=== PATIENT | male | born 1960 | race Caucasian/White ===

== ENCOUNTER 2024-01-28 15:30 | Emergency (ER) | payer BC, SELFPAY ==
[2024-01-28 15:46] VITALS: BP 189/111; PULSE 96; RESP 13; TEMP 37.1; O2SAT 95
[2024-01-28 15:47] VITALS: BMI 35.9
[2024-01-28 15:50] VITALS: PULSE 96
--- NOTE | 2024-01-28 16:00 | XR_ITS ---
Examination: CT brain head without contrast. 2-D sagittal coronal reconstructions Date and time of exam:January 28, 2024 1606 hrs. Comparison July 11, 2018 Indications: Onset dizziness today, history hypertension CTDI: vol (mGy):55 DLP: (mGycm):1213 Technique: Multiple CT axial sections of the brain have been obtained, 5 mm slice thickness. Contrast has not been administered. 2-D sagittal, coronal reconstructions have been obtained Low dose protocols were performed. One or more of the following dose reduction techniques were used; automated exposure control, adjustment of the mA and/or KV according to patient size, use of iterative reconstruction technique. Findings: No significant ventricular enlargement. 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 No mass effect or midline shift Basal cisterns are not remarkable. Fourth ventricle is midline. Cranial vault intact. Impression: Negative for acute hemorrhage, mass effect or midline shift Clinical correlation advised and follow-up accordingly
--- NOTE | 2024-01-28 16:00 | XR_ITS ---
Examination: AP chest single view Technique: AP portable upright chest single view Exam date and time: January 27, 2014 1618 hrs. Comparison January 01, 2022 Indications: Hypertension dizziness today Findings: Normal heart size No pneumonia or pulmonary edema Moderate osteopenia Impression: No active disease
--- NOTE | 2024-01-28 16:00 | EKG_ITS ---
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
--- NOTE | 2024-01-28 16:01 | EDNOTE_ITS ---
ED Dizzyness RME/HPI General Chief Complaint: Dizziness Stated Complaint: DIZZINESS Time Seen by Provider: 01/28/24 15:53 Arrival date/time: 01/28/24 15:30 RME / HPI RME / HPI Narrative: 63-year-old male patient came in for evaluation regarding sudden onset of dizziness. Onset of symptoms about 3 hours prior to ER visit as sudden onset of dizziness, described as massive dizziness, off balance when ambulating, severity moderate. Patient denies any blurry vision denies any headache denies any numbness or paresthesia denies any upper or lower extremity weakness. Patient denies any fever denies any head trauma or fall denies any ear ache. Patient told me that he is diabetic but is not taking his diabetes medication for a while now. In the triage patient was noted to be hypertensive, blood pressure of 189/111. Related Data Home Medications ?Medication ?Instructions ?Recorded ?Confirmed azilsartan medoxomil 40 1 tab PO QDAY 10/07/18 09/04/20 mg-chlorthalidone 25 mg tablet (Edarbyclor) fenofibrate 160 mg tablet 160 mg PO DAILY 09/04/20 09/04/20 Previous Rx's ?Medication ?Instructions ?Recorded meclizine 50 mg tablet 50 mg PO BID PRN dizziness #20 tabs 01/28/24 Allergies Allergy/AdvReac Type Severity Reaction Status Date / Time No Known Allergies Allergy Verified 01/28/24 15:31 Review of Systems Review of Systems Narrative Review of Systems: Review of system reviewed and within normal limits except mentioned in HPI ED Exam Narrative Physical exam: VITAL SIGNS: Reviewed. GENERAL APPEARANCE: Alert and interactive, follows commands, no acute distress, GCS of 15 HEAD AND FACE: Non-traumatic. ENT: PERRL, pink conjunctivitis, eyelid no trauma, Mucous membrane moist. No nystagmus noted NECK: Supple, nontender, no nuchal rigidity. CHEST: No tenderness, no crepitus, no paradoxical movement, no retractions. LUNGS: Clear, well ventilated, symmetric, no rales, no wheezing, no ronchi, no stridor, good breath sounds bilaterally. HEART: Regular rate, regular rhythm, no murmur, no gallops. ABDOMEN: Soft, positive bowel sounds, nondistended, no guarding, nontender, no rebound, no masses, RECTAL: Deferred. GENITAL: Deferred. NEUROLOGICAL: Gross motor function intact sensory function intact, Appropriate for age. MUSCULOSKELETAL: low back nontender, full range of motion. EXTREMITIES: Nontender, full range of motion. SKIN: Color pink, dry, no rash, no lacerations, no abrasions, no contusions. LYMPHATICS: Deferred. Course Quality Measures none Orders Category Date Time Status EKG (ED ONLY) *Do not use* NOW Care 01/28/24 16:[address] head/brain wo con Stat Exams 01/28/24 16:00 Completed EKG (ED Only) Stat Exams 01/28/24 16:00 Draft XR chest 1V Stat Exams 01/28/24 16:00 Completed B-Type Natriuretic Peptide Stat Lab 01/28/24 15:49 Completed CBC Stat Lab 01/28/24 15:49 Completed Comprehensive Metabolic Panel Stat Lab 01/28/24 15:49 Completed Partial Thromboplastin Time Stat Lab 01/28/24 15:49 Completed Prothrombin Time with INR Stat Lab 01/28/24 15:49 Completed Troponin I Stat Lab 01/28/24 15:49 Completed Urinalysis, C/S if Indicated Stat Lab 01/28/24 17:03 Completed Labetalol IV [Trandate IV] Med 01/28/24 16:00 Discontinued 20 mg IVP X1 ONE Meclizine HCl [Antivert] Med 01/28/24 17:37 Discontinued 50 mg PO X1 ONE Vital Signs Vital signs: Vital Signs Temperature 98.7 F 01/28/24 15:46 Pulse Rate 96 01/28/24 15:46 Respiratory Rate 13 01/28/24 15:46 Blood Pressure 189/111 H 01/28/24 15:46 Pulse Oximetry (%) 95 01/28/24 15:46 Oxygen Delivery Method Room Air 01/28/24 15:46 Dizziness MDM Narrative MDM Narrative:: 63-year-old male patient came in for evaluation regarding sudden onset of dizziness. Onset of symptoms about 3 hours prior to ER visit as sudden onset of dizziness, described as massive dizziness, off balance when ambulating, severity moderate. Patient denies any blurry vision denies any headache denies any numbness or paresthesia denies any upper or lower extremity weakness. Patient denies any fever denies any head trauma or fall denies any ear ache. Patient told me that he is diabetic but is not taking his diabetes medication fo r a while now. In the triage patient was noted to be hypertensive, blood pressure of 189/111. Patient's workup all came back normal including CT scan of the head which is also normal. Cardiac workup also came back normal. Patient was given labetalol, meclizine. Prior to discharge patient blood pressure was noted to be 136/65 and patient told me that his dizziness is totally gone. Patient is ambulatory with no recurrence of dizziness. Patient data External records reviewed:: None Clinical information provided by:: patient Social determinants that could affect healthcare access:: none Patient has the following chronic illnesses:: I was highly concerned with the patient's initial history/complaints and presentation, but after multiple re examinations, treatments pt showed reassuring clinical improvement. Also, an extensive laboratory work up and diagnostic imaging do not show any gross evidence of acute end organ damage related to a Hypertensive emergency.CBC, CMP and U/A unremarkable. therefore; most likely is a HTN-uncontrolled and possibly related to improper dieting and/or requires further anti hypertensive medication reconciliation and management as an outpatient with PMD. Diabetes mellitus How is presenting disease/condition affected by chronic disease/condition?: exacerbated by Evaluation data The following diagnostics were reviewed and interpreted by me:: lab results, radiology exam(s) and EKG tracing(s) Lab and/or radiology exams considered but not ordered:: none Interpretation Summary: EKG showed sinus rhythm, ventricular rate of 88 bpm, per interval 166 MS, no ST segment elevation or depression noted. CT scan of the head came back unremar kable. Laboratory workup all came back normal also. Except for a blood glucose of 273 with no sign of DKA. Medications / Prescriptions Medications or Prescriptions considered but not ordered:: None Medication administrations:: Medication Administration History Discontinued Medications Labetalol HCl (Labetalol Inj 5 Mg/Ml Vial 20 Ml) 20 mg IVP X1 ONE Stop: 01/28/24 16:01 Last Admin: 01/28/24 16:22 Dose: 20 mg Documented By: DO Meclizine HCl (Meclizine Hcl 25 Mg Tablet) 50 mg PO X1 ONE Stop: 01/28/24 17:38 Last Admin: 01/28/24 18:07 Dose: 50 mg Documented By: DO Labetalol and meclizine Consultations Consultation(s) initiated? (list below): No Diagnosis Dizziness Differential Diagnosis: benign paroxysmal positional vertigo, orthostatic hypotension, cerebrovascular accident and other ( Dizziness) Most likely diagnosis given after review of the tests above:: Dizziness Admission Indicated Admission indicated?: not indicated Explain why admission is indicated or not indicated:: Stable Admission Request Was there a request for admission?: No Disposition Plan Disposition Plan: Discharge Discharge Attestation Discharge Attestation: The patient was given an opportunity to ask questions and understood the discharge instructions. Discharge instructions specifically effects, indications for sooner follow up or return to the emergency department, and the expected course of current diagnosis. Patient condition: Stable Discharge Plan Plan Disposition Comment: stable Prescriptions/Referrals Prescriptions/Med Rec: New meclizine 50 mg tablet 50 mg PO BID PRN (Reason: dizziness) Qty: 20 0RF No Action Edarbyclor 40-25 mg tablet 1 tab PO QDAY fenofibrate 160 mg tablet 160 mg PO DAILY Problem List Clinical Impression: Dizziness Patient/Caregiver Discharge Instructions Education Materials: ED Dizziness, Uncertain Cause Additional Instructions: Thank you for the opportunity for serving you today. You are stable for discharged . You are advised to: Follow-up with your PCP in 1 to 2 days Return to ED for worsening of symptoms Increase oral fluids Take medication as prescribed Print Language: Chadian Stand Alone Forms: Emily Award Info., Patient Portal Info Letter
[2024-01-28 16:17] LABS: Basophils # (Auto) 0.1 Thou/mm3 (0.0-0.2); Basophils % (Auto) 1 % (0-2.5); Eosinophils # (Auto) 0.1 Thou/mm3 (0.0-0.5); Eosinophils % (Auto) 1 % (0-10); Hematocrit 45.7 % (41.0-53.0); Hemoglobin 16.1 g/dL (13.5-16.0); Immature Granulocytes % (Auto) 1 % (0-0); Immature Granulocytes Auto 0.06 Thou/mm3 (0.00-0.00); Lymphocytes % (Auto) 33 % (10-50); Mean Corpuscular HGB Conc 35.2 g/dl (31.0-37.0); Mean Corpuscular Hemoglobin 31.6 pg (25.0-35.0); Mean Corpuscular Volume 90 fL (80-100); Monocytes # (Auto) 0.6 Thou/mm3 (0.0-0.8); Monocytes % (Auto) 6 % (0-12); Neutrophils # (Auto) 5.4 Thou/mm3 (1.8-7.7); Neutrophils % (Auto) 59 % (37-80); Nucleated Red Blood Cell % 0 /100 WBC (0); Platelet Count 260 Thou/mm3 (140-440); RDW Standard Deviation 40.2 fL (35.1-43.9); White Blood Count 9.3 Thou/mm3 (3.8-10.6)
[2024-01-28 16:22] VITALS: BP 169/101; PULSE 89
[2024-01-28] MEDS: LABETALOL INJ 5 MG/ML VIAL 20 ML 20 MG IVP (16:22)
[2024-01-28 16:35] LABS: Partial Thromboplastin Time 25.6 Seconds (22.0-36.0); Prothrombin Time 10.9 Seconds (9.0-12.2)
[2024-01-28 16:38] LABS: Alanine Aminotransferase 119 U/L (10-49); Albumin, Serum 5.1 gm/dL (3.4-4.8); Albumin/Globulin Ratio 2.1 (1.2-2.2); Alkaline Phosphatase 116 U/L (46-116); Anion Gap 7 (7-16); Aspartate Amino Transferase 72 U/L (0-34); B-Type Natriuretic Peptide < 20 pg/mL (0-100); BUN/Creatinine Ratio 10 Ratio (12-20); Bilirubin,Total 0.5 mg/dL (0.3-1.2); Blood Urea Nitrogen 11 mg/dL (9-23); Calcium 9.7 mg/dL (8.3-10.6); Calcium (Corrected) 9.7 mg/dL (8.5-10.1); Carbon Dioxide 25.4 mMol/L (20.0-31.0); Chloride 101 mMol/L (98-107); Creatinine (Component) 1.1 mg/dL (0.6-1.3); Estimated Creatinine Clearance 88.9 mL/min (>60); Globulin 2.4 gm/dL (2.3-3.5); Glucose 273 mg/dL (74-106); Osmolality,Calculated 275 (275-295); Potassium 3.9 mMol/L (3.4-5.1); Sodium 133 mMol/L (136-145); Total Protein 7.5 gm/dL (5.7-8.2); Troponin I < 0.020 ng/mL (0.0-0.045); eGFR > 60 See Note
[2024-01-28 17:11] LABS: Collection Type, Urine Clean Catch; Squamous Epithelial Cell,Urine 0 /hpf (0-5)
[2024-01-28 17:20] LABS: Bilirubin,Urine Negative (Negative); Blood,Urine Negative (Negative); Clarity,Urine Clear (Clear/Hazy); Color,Urine Lt-Yellow (Lt Yel-Yel); Culture Indicated,Urine Not Indicated; Glucose, Urine 4+ (Negative); Ketones,Urine Negative (Negative); Leukocyte Esterase,Urine Negative (Negative); Nitrite,Urine Negative (Negative); PH,Urine 6.5 (5.0-7.0); Protein,Urine 1+ (Neg - Trace); RBC,Urine 1 /hpf (0-3); Specific Gravity,Urine 1.024 (1.001-1.035); Urobilinogen,Urine Negative mg/dL (0.0-1.0); WBC,Urine < 1 /hpf (0-5)
[2024-01-28] MEDS: MECLIZINE HCL 25 MG TABLET 50 MG PO (18:07)
[2024-01-28 18:09] VITALS: BP 136/86; PULSE 74; RESP 18; TEMP 36.7; O2SAT 96
--- NOTE | 2024-01-28 18:13 | PC.NURSE ---
pt resting comfortable at this time. denies dizziness. v/s updated. will continue to monitor
== END 2024-01-28 18:45 | disposition home or self-care (01) ==
PROVIDERS: Nurse Practitioner Family; Emergency Provider Emergency Medicine; PCP Internal Medicine
DX: R42 Dizziness and giddiness (principal); I45.10 Unspecified right bundle-branch block; I10 Essential (primary) hypertension
CPT/HCPCS: 36415; 70450; 71045; 80053; 81001; 83880; 84484; 85025; 85610; 85730; 93005; 96374; 99284; J3490; A9270; J1920

== ENCOUNTER → 2024-05-22 | Outpatient (CLI) | payer BC, SELFPAY ==
[2024-05-22 14:37] LABS: Basophils # (Auto) 0.1 Thou/mm3 (0.0-0.2); Basophils % (Auto) 1 % (0-2.5); Eosinophils # (Auto) 0.1 Thou/mm3 (0.0-0.5); Eosinophils % (Auto) 1 % (0-10); Hematocrit 45.7 % (41.0-53.0); Immature Granulocytes % (Auto) 1 % (0-0); Immature Granulocytes Auto 0.05 Thou/mm3 (0.00-0.00); Lymphocytes # (Auto) 3.7 Thou/mm3 (1.0-4.8); Lymphocytes % (Auto) 39 % (10-50); Mean Corpuscular Hemoglobin 31.8 pg (25.0-35.0); Mean Corpuscular Volume 91 fL (80-100); Monocytes # (Auto) 0.6 Thou/mm3 (0.0-0.8); Monocytes % (Auto) 6 % (0-12); Neutrophils # (Auto) 5.2 Thou/mm3 (1.8-7.7); Neutrophils % (Auto) 54 % (37-80); Nucleated Red Blood Cell % 0 /100 WBC (0); Platelet Count 240 Thou/mm3 (140-440); RDW Standard Deviation 39.8 fL (35.1-43.9); Red Blood Count 5.03 Miln/mm3 (4.50-5.90); White Blood Count 9.6 Thou/mm3 (3.8-10.6)
[2024-05-22 14:44] LABS: Prostate Specific Antigen 1.53 ng/mL (0-4.00)
[2024-05-22 15:03] LABS: Alanine Aminotransferase 139 U/L (10-49); Albumin, Serum 4.4 gm/dL (3.4-4.8); Alkaline Phosphatase 65 U/L (46-116); Anion Gap 7 (7-16); Aspartate Amino Transferase 78 U/L (0-34); BUN/Creatinine Ratio 16 Ratio (12-20); Bilirubin,Total 0.8 mg/dL (0.3-1.2); Blood Urea Nitrogen 18 mg/dL (9-23); Calcium 9.2 mg/dL (8.3-10.6); Calcium (Corrected) 9.2 mg/dL (8.5-10.1); Cardiac Risk Estimate 6.4 RATIO (4.0-6.7); Chloride 106 mMol/L (98-107); Cholesterol 223 mg/dL (132-200); Creatinine (Component) 1.1 mg/dL (0.6-1.3); Free T4 (Free Thyroxine) 1.06 ng/dL (0.89-1.76); Globulin 2.2 gm/dL (2.3-3.5); Glucose 211 mg/dL (74-106); HDL Cholesterol 35 mg/dL (40-60); LDL Cholesterol,Calculated 123 mg/dL (0-130); Osmolality,Calculated 283 (275-295); Potassium 4.1 mMol/L (3.4-5.1); Sodium 138 mMol/L (136-145); Thyroid Stimulating Hormone 4.56 uIU/mL (0.55-4.78); Total Protein 6.6 gm/dL (5.7-8.2); Triglycerides 327 mg/dL (30-150); eGFR > 60 See Note
== END | disposition home or self-care (01) ==
LOC: COPL 13:48
PROVIDERS: PCP Internal Medicine; Referring Provider Internal Medicine; Visit Provider Internal Medicine
DX: Z00.00 Encounter for general adult medical examination without abnormal findings (principal); E55.9 Vitamin D deficiency, unspecified; N40.1 Benign prostatic hyperplasia with lower urinary tract symptoms
CPT/HCPCS: 36415; 80053; 80061; 82306; 84153; 84439; 84443; 85025

== ENCOUNTER 2024-12-25 14:40 | Emergency (ER) | payer BC, SELFPAY ==
[2024-12-25 14:41] VITALS: BMI 36.2
[2024-12-25 14:50] VITALS: BP 154/99; BP 184/100; PULSE 110; RESP 20; TEMP 36.7; O2SAT 95
--- NOTE | 2024-12-25 14:57 | EKG_ITS ---
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1960 Requested By: Curtis Gamble Order Number: [id number] Reading MD: Curtis Gamble Measurements Intervals [place] Rate: 100 P: 56 AL: 165 QRS: -59 QRSD: 106 T: 30 QT: 353 QTc: 456 Interpretive Statements SINUS TACHYCARDIA LOW QRS VOLTAGE IN PRECORDIAL LEADS [QRS DEFLECTION < 1.0 mV IN CHEST LEADS] S1-S2-S3 PATTERN, CONSISTENT WITH PULMONARY DISEASE, RVH, OR NORMAL VARIANT PATTERN CONSISTENT WITH PULMONARY DISEASE INCOMPLETE RIGHT BUNDLE BRANCH BLOCK [90+ ms QRS DURATION, TERMINAL R IN V1/V2, 40+ ms S IN I/aVL/V4/V5/V6] LEFT ANTERIOR FASCICULAR BLOCK [QRS AXIS <= -45, QR IN I, RS IN II] Compared to ECG 01/28/2024 16:31:20 Low QRS voltage now present Right ventricular hypertrophy now present Left anterior fascicular block now present Sinus rhythm no longer present Left-axis deviation no longer present T-wave abnormality no longer present /store/S0/[id number]/[id number].pdf
--- NOTE | 2024-12-25 14:57 | EDRME_ITS ---
Rapid Medical Screening Exam [facility] Arrival date/time: 12/25/24 14:40 64-year-old male with no known medical history presents to the emergency room with a chief complaint of right sided visual deficits. Patient states last Wednesday he began to have dizziness, loss of balance, and right-sided visual blurring vision. Patient denies any unilateral numbness or deficits I have greeted and performed a focused initial assessment of this patient. A comprehensive ED assessment and evaluation of the patient, analysis of all test results, and completion of the medical decision making process will be conducted by additional ED providers. Chief Complaint: Eye Problems Time Seen by Provider: 12/25/24 14:42 Vital signs: Vital Signs Temperature 98.0 F 12/25/24 14:50 Pulse Rate 110 H 12/25/24 14:50 Respiratory Rate 20 12/25/24 14:50 Blood Pressure 184/100 H 12/25/24 14:50 Pulse Oximetry (%) 95 12/25/24 14:50 Oxygen Delivery Method Room Air 12/25/24 14:50 Vital signs reviewed by provider: Yes Exam: Patient is a GCS of 15 he is alert and oriented x 3 pupils are PERRLA EOMs are intact Patient has a strong and regular rhythm clear bilateral lung sounds Clinical Impression: Villa's palsy/CVA/electrolyte imbalance/
[2024-12-25 15:42] LABS: Collection Type, Urine Clean Catch
[2024-12-25 15:47] LABS: Basophils # (Auto) 0.1 Thou/mm3 (0.0-0.2); Basophils % (Auto) 1 % (0-2.5); Eosinophils # (Auto) 0.0 Thou/mm3 (0.0-0.5); Eosinophils % (Auto) 0 % (0-10); Hematocrit 49.9 % (41.0-53.0); Hemoglobin 17.2 g/dL (13.5-16.0); Immature Granulocytes Auto 0.09 Thou/mm3 (0.00-0.00); Lymphocytes # (Auto) 2.6 Thou/mm3 (1.0-4.8); Lymphocytes % (Auto) 28 % (10-50); Mean Corpuscular HGB Conc 34.5 g/dl (31.0-37.0); Mean Corpuscular Hemoglobin 32.3 pg (25.0-35.0); Mean Corpuscular Volume 94 fL (80-100); Monocytes # (Auto) 0.6 Thou/mm3 (0.0-0.8); Monocytes % (Auto) 6 % (0-12); Neutrophils # (Auto) 6.0 Thou/mm3 (1.8-7.7); Neutrophils % (Auto) 65 % (37-80); Nucleated Red Blood Cell # 0.00 Thou/mm3 (0.00-0.00); Nucleated Red Blood Cell % 0 /100 WBC (0); Platelet Count 261 Thou/mm3 (140-440); RDW Standard Deviation 42.5 fL (35.1-43.9); Red Blood Count 5.32 Miln/mm3 (4.50-5.90); White Blood Count 9.4 Thou/mm3 (3.8-10.6)
[2024-12-25 15:53] LABS: Amphetamine/Methamp Scrn,U Negative (Negative); Barbiturate Screen,Urine Negative (Negative); Benzodiazepines Screen,Urine Negative (Negative); Benzoylecgonine Screen, Ur Negative (Negative); Fentanyl Screen,Urine Negative (Negative); Opiate Screen,Urine Negative (Negative); THC Screen,Urine Negative (Negative)
[2024-12-25 16:04] LABS: INR 1.0 (0.9-1.3); Partial Thromboplastin Time 29.8 Seconds (22.0-36.0); Prothrombin Time 10.3 Seconds (9.0-12.2)
[2024-12-25 16:07] LABS: B-Type Natriuretic Peptide < 20 pg/mL (0-100)
[2024-12-25 16:09] LABS: Alanine Aminotransferase 82 U/L (10-49); Albumin, Serum 4.9 gm/dL (3.4-4.8); Albumin/Globulin Ratio 2.1 (1.2-2.2); Alkaline Phosphatase 81 U/L (46-116); Anion Gap 10 (7-16); Aspartate Amino Transferase 50 U/L (0-34); BUN/Creatinine Ratio 11 Ratio (12-20); Bilirubin,Total 0.5 mg/dL (0.3-1.2); Blood Urea Nitrogen 12 mg/dL (9-23); Calcium 9.6 mg/dL (8.3-10.6); Calcium (Corrected) 9.6 mg/dL (8.5-10.1); Carbon Dioxide 24.1 mMol/L (20.0-31.0); Chloride 105 mMol/L (98-107); Creatinine (Component) 1.1 mg/dL (0.6-1.3); Estimated Creatinine Clearance 91.0 mL/min (>60); Globulin 2.3 gm/dL (2.3-3.5); Glucose 162 mg/dL (74-106); LDH (Lactate Dehydrogenase) 226 U/L (120-246); Magnesium 2.0 mg/dL (1.6-2.6); Osmolality,Calculated 281 (275-295); Potassium 4.4 mMol/L (3.4-5.1); Sodium 139 mMol/L (136-145); Total Protein 7.2 gm/dL (5.7-8.2); Troponin I < 0.002 ng/mL (0.0-0.045); eGFR > 60 See Note
[2024-12-25 16:15] LABS: Bilirubin,Urine Negative (Negative); Blood,Urine Negative (Negative); Clarity,Urine Clear (Clear/Hazy); Color,Urine Lt-Yellow (Lt Yel-Yel); Culture Indicated,Urine Not Indicated; Glucose, Urine 4+ (Negative); Ketones,Urine Trace (Negative); Leukocyte Esterase,Urine Negative (Negative); Nitrite,Urine Negative (Negative); PH,Urine 6.0 (5.0-7.0); Protein,Urine Trace (Neg - Trace); RBC,Urine < 1 /hpf (0-3); Specific Gravity,Urine 1.028 (1.001-1.035); Squamous Epithelial Cell,Urine < 1 /hpf (0-5); Urobilinogen,Urine Negative mg/dL (0.0-1.0); WBC,Urine < 1 /hpf (0-5)
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
[2024-12-25 19:17] VITALS: RESP 16
== END 2024-12-25 19:19 | disposition home or self-care (01) ==
PROVIDERS: Nurse Practitioner Family; Emergency Provider Emergency Medicine; PCP Internal Medicine
DX: H57.9 Unspecified disorder of eye and adnexa (principal); E11.9 Type 2 diabetes mellitus without complications; E87.8 Other disorders of electrolyte and fluid balance, not elsewhere classified; G51.0 Bell's palsy; I10 Essential (primary) hypertension
CPT/HCPCS: 36415; 80053; 80307; 81001; 83615; 83735; 83880; 84484; 85025; 85610; 85730; 93005; 99282